=== PATIENT | female | born 1990 | race Hispanic/Latino ===

== ENCOUNTER 2017-01-01 01:10 | Inpatient (IN) | payer MEDICAID ==
[~2017-01-01] VITALS: Ht 165.1 cm; Wt 72.6 kg
[2017-01-01] VITALS (21 sets, daily range): BP systolic 117–152; BP diastolic 68–97
--- NOTE | 2017-01-01 01:00 | NUR ---
ARRIVAL TO OB UNIT ACCOMPANIED BY Shahana [id number] EDC 01/12/17, C/O LABOR. DENIES ROM. STATES HAS HAD BLOODY SHOW. WAS 2 CMS IN OFFICE LAST VISIT. ORIENTED TO ROOM AND CALL SYSTEM. PLAN OF CARE TO OBTAIN URINE FOR DOA AND ANALYSIS, MONITOR FOR UTERINE ACTIVITY AND WELL-BEING, EXPLAINED TO PATIENT AND AGREED UPON. PATIENT APPEARS VERY UNCOMFORTABLE WITH CONTRACTIONS.
--- NOTE | 2017-01-01 01:20 | NUR ---
SROM DURING PATIENT EMESIS WITH CLEAR FLUID.
--- NOTE | 2017-01-01 01:22 | NUR ---
CREVICAL EXAM PERFORMED. LARGE AMOUNT CLEAR FLUID ON CHUX. NO MEMBRANES FELT ON EXAM. PATIENT 7 CMS DILATED.
--- NOTE | 2017-01-01 01:25 | NUR ---
CALL PLACED TO DR. OLSON AND REPORT GIVEN RE PATIENT COMPLAINTS AND HISTORY WITH ACTIVE LABOR STATUS. MD GAVE ORDERS TO ADMIT TO IN-PATIENT AND HE WILL BE EN ROUTE.
--- NOTE | 2017-01-01 01:33 | NUR ---
IN BIRTHING ROOM.
--- NOTE | 2017-01-01 01:51 | NUR ---
VIABLE FEMALE OVER INTACT PERINEUM. DR. OLSON IN ATTENDANCE. SEE DELIVERY RECORD.
--- NOTE | 2017-01-01 01:54 | NUR ---
OXYTOCIN INFUSING AND CYTOTEC GIVEN PO. FUNDUS FIRM AT U.
--- NOTE | 2017-01-01 02:15 | NUR ---
REPORT TO Shayna WILLIAMSON RN, WHO WILL BE ASSUMING CARE OF THIS PATIENT.
[2017-01-01 02:47] LABS: HEMOGLOBIN 12.7 g/dl (12.0-16.0); IMMATURE GRANULOCYTES 0.4 % (0.0-1.0); MEAN CELL VOLUME 86.4 fL CALC (80.0-100.0); MEAN CORPUSCULAR HGB 28.9 pG CALC (26.0-32.0); MEAN CORPUSCULAR HGB CONC 33.4 g/L CALC (32.0-36.0); NEUT# 8.57 thou/uL (2.00-7.15); RED BLOOD COUNT 4.4 mill/uL (4.20-5.60); RED CELL DISTRI WIDTH 13.4 % (11.5-15.5)
[2017-01-01 02:53] LABS: URINE BILIRUBIN - DIPSTICK NEGATIVE (NEGATIVE); URINE BLOOD DIPSTICK TRACE-INTACT (NEGATIVE); URINE CLARITY SLIGHT CLOUDY; URINE COLOR YELLOW; URINE GLUCOSE - DIPSTICK NEGATIVE (NEGATIVE); URINE KETONE NEGATIVE (NEGATIVE); URINE LEUK ESTERASE NEGATIVE (NEGATIVE); URINE NITRITE - DIPSTICK NEGATIVE (Negative); URINE PH 7.5 (4.5-8.0); URINE PROTEIN - DIPSTICK 100 mg/dL (NEG-TRACE); URINE SPECIFIC GRAVITY 1.025
[2017-01-01 02:58] LABS: BARBITURATES NEGATIVE (NEGATIVE); COCAINE NEGATIVE (NEGATIVE); METHADONE NEGATIVE (NEGATIVE); OXCYCODONE NEGATIVE (NEGATIVE); TETRAHYDROCANNABIONOL NEGATIVE (NEGATIVE); TRICYLIC ANTIDEPRESSANTS NEGATIVE (NEGATIVE)
[2017-01-01 03:05] LABS: URINE BACTERIA FEW hpf; URINE MUCUS MANY hpf (NONE-FEW); URINE RBC 0-2 RBC/hpf (0-5); URINE SQUAMOUS EPITHELIAL CELL MODERATE EPI/hpf (0-FEW); URINE WBC 0-2 WBC/hpf (0-5)
[2017-01-01 03:09] LABS: ALBUMIN 3.5 g/dL (3.2-5.0); ALKALINE PHOSPHATASE 188 u/l (38-126); ANION GAP 18 (6-22 (CALC)); BILIRUBIN, TOTAL 0.6 mg/dL (0.0-1.4); BUN 11 mg/dL (7-17); BUN/CREATININE RATIO 17 (12-20 (CALC)); CALCIUM 8.8 mg/dL (8.4-10.2); CARBON DIOXIDE 15 mmol/l (22-30); CHLORIDE 107 mmol/l (95-108); CREATININE 0.6 mg/dL (0.5-1.0); GFR > 60 ML/MIN (>=60 (CALC)); GFR FOR AFR.AMER. > 60 ML/MIN (>=60 (CALC)); GLUCOSE 87 mg/dL (65-105); SGOT/AST 29 u/l (14-36); SGPT/ALT 25 u/l (9-52); SODIUM 136 mmol/l (137-146)
--- NOTE | 2017-01-01 03:30 | NUR ---
PT TAKEN PER WHEELCHAIR TO ROOM 207. PT DOES OWN PERICARE AFTER INSTRUCTED BY NURSE. IV INFUSING PER MED PUMP AT 125CC/HR. GAIT STEADY AND EVEN. ORIENTED TO ROOM. CALL LIGHT WITHIN REACH. BED IN LOW POSITION.
--- NOTE | 2017-01-01 04:05 | NUR ---
PT TRYING TO NURSE . FUNDUS REMAINS FIRM AT UMBILICUS WITH LIGHT-MOD RUBRA. ICE PACK REMAINS ON PERINEUM. REQUEST PAIN MEDICATION FOR CRAMPING PAIN OF 4/10. REMAINS AT BEDSIDE. DRINKING JUICE AND EATING PUDDING.
--- NOTE | 2017-01-01 04:20 | NUR ---
MEDICATED WITH MOTRIN 600MG PO FOR COMPLAINTS OF CRAMPING. RESTING IN BED. FUNDUS REMAINS FIRM AT UMBILICUS WITH MOD RUBRA.
[2017-01-01] MEDS ORDERED: PRE-NATAL PO (04:55)
[2017-01-01] MEDS ORDERED: IRON325 M1 PO (05:14)
--- NOTE | 2017-01-01 05:20 | NUR ---
0455: PT VOMITED 300 CC OF DARK COLORED EMESIS. PT STATES "I FEEL A GUSH AND I THINK I'M BLEEDING". PT HAS LARGE AMOUNT OF RUBRA ON PADS WITH NUMEROUS LARGE CLOTS. FUNDUS MASSAGED AND TRICKLE OF BLOOD CONTINUES TO FLOW OUT OF VAGINA. PT APPEARS PALE. VS TAKEN AND STABLE. 0504: CYTOTEC 200 MCG PO GIVEN. 0518: NEW BAG OF LR WITH 10 UNITS OF PITOCIN STARTED PER MED PUMP. 0520: DR. OLSON NOTIFIED OF PT STATUS PER CELL PHONE. GIVES ORDER TO PREP FOR D&C.
[2017-01-01 05:48] LABS: HEMATOCRIT 33.4 % (37.0-47.0); HEMOGLOBIN 11.5 g/dl (12.0-16.0)
--- NOTE | 2017-01-01 06:15 | NUR ---
OR TEAM HERE TO GET PT. IV OF LR WITH 10 UNITS OF PITOCIN CONTINUES TO INFUSE. PREOP CHECKLIST COMPLETED. VAGINAL BLEEDING SLOWING BUT STILL TRICKLES OUT OF VAGINA WITH UTERINE MASSAGE. DR. OLSON HERE TO TAKE PT TO OR. CONSENTS WERE SIGNED. PT TAKEN PER DEACON.
[2017-01-01 07:41] LABS: HEMOGLOBIN 10.6 g/dl (12.0-16.0)
--- NOTE | 2017-01-01 08:05 | NUR ---
PT RECEIVED FROM RECOVERY ROOM, TRANSFERED TO BED. PT IS VERY DROWSY, BUT OPENS HER EYES BY VERBAL COMMAND. VS DONE, STABLE. DENIES PAIN. FUNDUS FIRM AT UMBILICUS WITH LIGHT LOCHIA. CUETO IS DRAINING CLEAR YELLOW URINE. SCDS IN PLACE AND ON. IVF RUNNING WITHOUT PROBLEMS. CONTINUOUS PULSE OX IN PLACE AND READS 97% ON ROOM AIR. SIGNIFICANT OTHER AT BEDSIDE.
--- NOTE | 2017-01-01 08:20 | NUR ---
PT SLEEPY, OPENS EYES TO VERBAL COMMAND. VS STABLE. SEE FUNDAL CHECKS ON MEDITECH. SIGNIFICANT OTHER REMAINS AT BEDSIDE.
--- NOTE | 2017-01-01 08:35 | NUR ---
PT SLEEPING, OPENS EYES TO VERBAL COMMAND, CONTINUES DROWSY. VS AND LOCHIA STABLE. DENIES PAIN. SIGNIFICANT OTHER REMAINS AT BEDSIDE.
--- NOTE | 2017-01-01 08:50 | NUR ---
PT CONTINUES TO SLEEP, AWAKENS TO VERBAL COMMAND. VS/LOCHIA STABLE. CONTINUOUS PULSE OX REMAINS IN PLACE AND IS 97% ON RA. SIGNIFICANT OTHER REMAINS AT BEDSIDE.
--- NOTE | 2017-01-01 09:05 | NUR ---
PT SLEEPING, VS/BLEEDING STABLE. DENIES ANY PAIN. SIGNIFICANT OTHER REMAINS AT BEDSIDE.
--- NOTE | 2017-01-01 09:40 | NUR ---
PT STARTING TO WAKE UP, VS/BLEEDING STABLE. DENIES PAIN. PT STARTED TO DRINK WATER/PO FLUIDS ENCOURAGED. SIGNIFICANT OTHER AT BEDSIDE.
--- NOTE | 2017-01-01 10:10 | NUR ---
PT AWAKE, SITTING UP IN BED, VS/BLEEDING STABLE, HOLDING INFANT, POSITIVE BONDING. CONTINUOUS PULSE OX DC'D AT THIS TIME, SATS ARE 97% ON ROOM AIR. LR WITH 20 UNITS OF PITOCIN DONE INFUSING, IV SALINE LOCKED AT THIS TIME PER ORDER. PT DENIES ANY PAIN. POST OP AND POST TEACHING DONE AT THIS TIME, PT VERBALIZED UNDERSTANDING. SIGNIFICANT OTHER AT BEDSIDE.
--- NOTE | 2017-01-01 11:00 | NUR ---
PT SITTING UP, VISITING WITH FAMILY, EATING FOOD THAT FAMILY BROUGHT IN. DENIES ANY PAIN. VS/BLEEDING STABLE. DRINKING PO FLUIDS WELL, GOOD URINE OUTPUT IN CUETO. DISCUSSED PLAN OF CARE WITH PT, PT VERBALIZED UNDERSTANDING AND DENIES ANY NEEDS.
--- NOTE | 2017-01-01 13:10 | NUR ---
ROM AND SCD'S DC'D AT THIS TIME. PT ASSISTED TO BATHROOM, PERICARE DONE, PANTIES AND PADS PLACED, GOWN CHANGED. PT DID OWN ORAL CARE. LINENS CHANGED. PT TOLERATED ACTIVITY WELL AND IS AMBULATING IN THE ROOM. FAMILY AT BEDSIDE. DENIES ANY PAIN.
--- NOTE | 2017-01-01 14:31 | NUR ---
PT SLEEPING AT THIS TIME, NO SIGNS OF DISTRESS.
[2017-01-01 16:14] LABS: HEMATOCRIT 30.3 % (37.0-47.0); HEMOGLOBIN 10.4 g/dl (12.0-16.0); IMMATURE GRANULOCYTES 0.3 % (0.0-1.0); MEAN CELL VOLUME 85.1 fL CALC (80.0-100.0); MEAN CORPUSCULAR HGB 29.2 pG CALC (26.0-32.0); MEAN CORPUSCULAR HGB CONC 34.3 g/L CALC (32.0-36.0); NEUT# 10.57 thou/uL (2.00-7.15); RED BLOOD COUNT 3.56 mill/uL (4.20-5.60); RED CELL DISTRI WIDTH 13.6 % (11.5-15.5)
--- NOTE | 2017-01-01 16:35 | NUR ---
PT SITTING UP, EATING FOOD BROUGHT IN FROM FAMILY. VS DONE, STABLE, DENIES ANY PAIN OR NEEDS AT THIS TIME. PT STATES SHE VOIDED, BUT REMOVED POTTY HAT BECAUSE SHE ALSO HAD SOME DIARRHEA, HOWEVER, PT STATED THAT SHE URINATED "ALOT", BLEEDING IS LIGHT.
--- NOTE | 2017-01-01 17:38 | NUR ---
PT RESTING IN BED, DENIES ANY PAIN OR NEEDS AT THIS TIME.
--- NOTE | 2017-01-01 18:45 | NUR ---
REPORT GIVEN TO Jagjit BERNAL RN.
--- NOTE | 2017-01-01 19:00 | NUR ---
REPORT RECEIVED FROM Bharti MONTGOMERY RN. TAKING OVER CARE OF PATIENT. PT STATES SOME BACKPAIN. TRYING TO REPOSITION. WILL CONTINUE TO MONITOR. NO OTHER NEEDS VOICED AT THIS TIME. SITTING UP IN BED, INFANT IN OPEN CRIB. S/O AT BEDSIDE. BED IN LOW POSITION AND CALL LIGHT IN REACH. WILL CONTINUE TO MONITOR.
--- NOTE | 2017-01-01 19:55 | NUR ---
SCHEDULED MEDS GIVEN PER DEC AND MEDICATED W/MOTRIN FOR PAIN. ASSESSMENT AND VS STABLE CHARTED. IV DISCONTINUED PT COMPLAINED OF DISCOMFORT. ADVISED PT THAT IF CBC COMES BACK LOW IN AM AND NEEDED IV, WOULD HAVE TO RESTICK. PT VOICED UNDERSTANDING.
[2017-01-02 04:55] VITALS: BP 108/63
--- NOTE | 2017-01-02 05:13 | NUR ---
CBC DRAWN LEFT AC X1 STICK. PT TOLERATED WELL. VS STABLE CHARTED. PT DENIES PAIN OR NEEDS AT THIS TIME. HOLDING . BED IN LOW POSTION, CALL LIGHT IN REACH. S/O AT BEDSIDE. WILL CONTINUE TO MONITOR.
[2017-01-02 05:30] LABS: HEMATOCRIT 28.5 % (37.0-47.0); HEMOGLOBIN 9.6 g/dl (12.0-16.0); IMMATURE GRANULOCYTES 0.5 % (0.0-1.0); MEAN CELL VOLUME 86.9 fL CALC (80.0-100.0); MEAN CORPUSCULAR HGB 29.3 pG CALC (26.0-32.0); MEAN CORPUSCULAR HGB CONC 33.7 g/L CALC (32.0-36.0); NEUT# 5.97 thou/uL (2.00-7.15); RED BLOOD COUNT 3.28 mill/uL (4.20-5.60); RED CELL DISTRI WIDTH 13.9 % (11.5-15.5)
--- NOTE | 2017-01-02 07:00 | NUR ---
RECEIVED REPORT FROM VITA BERNAL RN. PT IS AWAKE IN BED. NO NEEDS AT THIS TIME. CONDITION IS STABLE.
--- NOTE | 2017-01-02 07:05 | NUR ---
REPORT GIVEN TO Shayna VAZQUEZ RN. PT AWAKE, HOLDING INFANT IN BED AT THIS TIME. DENIES NEEDS AT THIS TIME.
--- NOTE | 2017-01-02 07:53 | NUR ---
PT IS RESTING QUIETLY IN BED WITH EYES CLOSED. NO S/S OF DISTRESS NOTED.
--- NOTE | 2017-01-02 08:00 | NUR ---
DR OLSON ROUNDED ON PT. OBTAINED D/C ORDERS.
--- NOTE | 2017-01-02 08:30 | NUR ---
REVIEWED ALL D/C INSTRUCTIONS. INCLUDED PRINTED EDUCATION ON MOTRIN AND IRON. GAVE PRINTED INFO ON IRON RICH DIET AND CONTROL, PT PLANNING ON IMPLANT.
[2017-01-02] MEDS ORDERED: IBUPROFEN600 MG PO (09:22)
--- NOTE | 2017-01-02 13:40 | NUR ---
Discharge instructions given and reviewed. Pt. verbalizes understanding. Discharged in good condition via Wheelchair to Home accompanied by significant other.
== END 2017-01-02 13:40 | disposition home or self-care (01) | DRG 767 ==
LOC: OB 01:10 → OBOP 01:10 → OB 01:12 → OBOP 01:24 → OB 01:25
PROVIDERS: ADMIT Obstetrics & Gynecology; ATTEND Obstetrics & Gynecology
PROC: 10E0XZZ Delivery of Products of Conception, External Approach (ICD-10-PCS; principal; 2017-01-01)
PROC: 0UDB7ZZ Extraction of Endometrium, Via Natural or Artificial Opening (ICD-10-PCS; 2017-01-01)
PROC: 0UQC7ZZ Repair Cervix, Via Natural or Artificial Opening (ICD-10-PCS; 2017-01-01)
DX: O72.0 Third-stage hemorrhage (principal); O71.3 Obstetric laceration of cervix; Z37.0 Single live birth; Z3A.38 38 weeks gestation of pregnancy